=== PATIENT | male | born 1990 ===

== ENCOUNTER 2022-07-06 14:11 | Emergency (ER) | payer BC, MEDICAID ==
[~2022-07-06] VITALS: Ht 160 cm; Wt 61.0 kg
[2022-07-06 14:38] VITALS: BP 167/84
== END 2022-07-06 19:17 | disposition home or self-care (01) ==
LOC: ER 14:11
DX: R10.2 Pelvic and perineal pain (principal); J45.909 Unspecified asthma, uncomplicated; V29.99XA Rider (driver) (passenger) of other motorcycle injured in unspecified traffic accident, initial encounter; Y93.89 Activity, other specified; Y92.89 Other specified places as the place of occurrence of the external cause; Y99.8 Other external cause status
CPT/HCPCS: 99281